=== PATIENT | male | born 1985 | race American Indian/Alaskan Native ===

== ENCOUNTER 2021-04-17 12:03 | Emergency (ER) | payer SELFPAY ==
--- NOTE | 2021-04-17 12:26 | Emergency Department Report ---
ED Seizure HPI - General Chief Complaint: Seizure Stated Complaint: SEIZURE Time Seen by Provider: 04/17/21 12:12 Source: EMS Mode of arrival: Stretcher Limitations: No Limitations - History of Present Illness Initial Comments: 36-year-old male presents to ED following seizure while at work. Patient states reports previously having 1 seizure approximately 5 years ago. States he was seen in the ED at that time, but never followed up with a neurologist for full work-up. Patient works for [employer]. States today he began "feeling weird," then had a seizure afterward. EMS was called and reports that patient was postictal for approximately 20 minutes afterward. Patient is currently awake and alert, no complaints. He denies any recent illness, fever, vomiting, diarrhea, headache. Patient reports he drinks alcohol approximately twice a week. He reports marijuana use, denies any other drug use. MD Complaint: seizure -: This morning Description of Episode: loss of consciousness Witnessed:: Yes Seizure History: other (Patient has had one seizure in the past) Place: work Associated Symptoms: denies: chest pain, cough, fever/chills, shortness of breath Treatments Prior to Arrival: none - Related Data Previous Rx's Medication Instructions Recorded Last Taken Type levETIRAcetam [Keppra TAB] 500 mg PO BID #60 tablet 04/17/21 Unknown Rx Allergies Allergy/AdvReac Type Severity Reaction Status Date / Time No Known Allergies Allergy Verified 04/17/21 12:12 ED Review of Systems ROS: Stated complaint: SEIZURE Other details as noted in HPI Comment: All other systems reviewed and negative Constitutional: denies: fever Respiratory: denies: cough, shortness of breath Cardiovascular: denies: chest pain Gastrointestinal: denies: abdominal pain, vomiting, diarrhea Neurological: denies: headache, weakness, numbness ED Past Medical Hx - Past Medical History Previous Medical History?: No - Surgical History Past Surgical History?: No - Medications Home Medications: Home Medications Medication Instructions Recorded Confirmed Last Taken Type levETIRAcetam [Keppra TAB] 500 mg PO BID #60 tablet 04/17/21 Unknown Rx ED Physical Exam - General Limitations: No Limitations General appearance: alert, in no apparent distress - Head Head exam: Present: atraumatic, normocephalic - Eye Eye exam: Present: normal appearance, PERRL, EOMI - ENT ENT exam: Present: mucous membranes moist - Neck Neck exam: Present: normal inspection - Respiratory Respiratory exam: Present: normal lung sounds bilaterally. Absent: respiratory distress - Cardiovascular Cardiovascular Exam: Present: regular rate, normal rhythm - GI/Abdominal GI/Abdominal exam: Present: soft. Absent: distended, tenderness - Extremities Exam Extremities exam: Present: normal inspection - Neurological Exam Neurological exam: Present: alert, oriented X3, CN II-XII intact. Absent: motor sensory deficit - Psychiatric Psychiatric exam: Present: normal affect, normal mood - Skin Skin exam: Present: warm, dry, intact, normal color ED Course Vital Signs 04/17/21 04/17/21 04/17/21 12:12 12:20 12:28 Temperature 98.2 F 98.2 F Pulse Rate 76 80 Respiratory 16 14 Rate Blood Pressure 116/80 Blood Pressure 110/74 [Right] O2 Sat by Pulse 99 97 97 Oximetry 04/17/21 04/17/21 04/17/21 12:31 12:36 12:45 Temperature Pulse Rate 82 Respiratory 15 16 Rate Blood Pressure 116/80 116/80 Blood Pressure [Right] O2 Sat by Pulse 98 97 99 Oximetry 04/17/21 04/17/21 04/17/21 13:01 13:15 13:31 Temperature Pulse Rate 71 76 67 Respiratory 16 17 16 Rate Blood Pressure 110/77 110/77 111/76 Blood Pressure [Right] O2 Sat by Pulse 97 99 99 Oximetry 04/17/21 04/17/21 04/17/21 13:45 14:01 14:15 Temperature Pulse Rate 60 78 65 Respiratory 13 18 14 Rate Blood Pressure 111/76 110/77 110/77 Blood Pressure [Right] O2 Sat by Pulse 98 97 97 Oximetry 04/17/21 04/17/21 04/17/21 14:31 14:45 15:01 Temperature Pulse Rate 64 81 66 Respiratory 16 17 15 Rate Blood Pressure 112/73 112/73 112/73 Blood Pressure [Right] O2 Sat by Pulse 98 99 99 Oximetry 04/17/21 04/17/21 04/17/21 15:15 15:31 15:45 Temperature Pulse Rate 78 90 80 Respiratory 13 15 16 Rate Blood Pressure 112/73 118/80 118/80 Blood Pressure [Right] O2 Sat by Pulse 99 99 98 Oximetry 11/01/21 11/01/21 11/01/21 16:01 16:15 16:43 Temperature 98.7 F Pulse Rate 72 81 81 Respiratory 15 14 14 Rate Blood Pressure 116/76 116/76 Blood Pressure 116/76 [Right] O2 Sat by Pulse 98 100 Oximetry ED Medical Decision Making - Lab Data Result diagrams: 04/17/21 13:11 04/17/21 14:45 - Radiology Data Radiology results: report reviewed, image reviewed - Medical Decision Making 36-year-old male presents to ED following seizure at work. Patient reports rem ote history of 1 other seizure. Patient never underwent work-up for seizure with a neurologist. Today, patient has no neuro deficits on exam. He is back to baseline. CT head is negative. Since this is patient's second seizure we will start him on Keppra. Patient advised not to drive or operate heavy machinery until he is cleared to do so by neurology. Patient will be discharged at this time. Critical care attestation.: If time is entered above; I have spent that time in minutes in the direct care of this critically ill patient, excluding procedure time. ED Disposition Clinical Impression: Seizure Disposition: 01 HOME / SELF CARE / HOMELESS Is pt being admited?: No Condition: Stable Instructions: Seizure, Adult, [id number] Additional Instructions: Do not drive or operate any heavy machinery until you have seen a neurologist and been cleared to do so. Prescriptions: levETIRAcetam [Keppra TAB] 500 mg PO BID #60 tablet Referrals: ANTHONY DASILVA MD [Primary Care Provider] - 3-5 Days TONI HUNT MD [Referring] - 3-5 Days [facility] [Provider Group] - 3-5 Days Time of Disposition: 15:33
--- NOTE | 2021-04-17 13:20 | Cat Scan Report ---
CT head/brain wo con INDICATION: SEIZURE or anxiety attack. TECHNIQUE: Routine CT head. All CT scans at this location are performed using CT dose reduction for A COR[place] by means of automated exposure control. COMPARISON: None. FINDINGS: Intracranial: Alba-white matter differentiation is maintained. No intracranial hemorrhage. No extra a xial collection. No hydrocephalus. No herniation. Sinuses: Paranasal sinuses and mastoid air cells are essentially clear. Orbits: Globes are intact. Calvarium: No acute fracture. IMPRESSION: 1. No acute intracranial abnormality. Signer Name: Jesus Quach MD Signed: 04/17/2021 1:16 PM Workstation Name: [id number]
[2021-04-17 14:00] LABS: Basophils % (Auto) 0.2 % (0.0-1.8); Eosinophils % (Auto) 0.5 % (0.0-4.3); Hematocrit 44.3 % (35.5-45.6); Hemoglobin 14.3 gm/dl (11.8-15.2); Lymphocytes # (Auto) 1.1 K/mm3 (1.2-5.4); Lymphocytes % (Auto) 15.9 % (13.4-35.0); Mean Corpuscular HGB Conc 32 % (32-34); Mean Corpuscular Volume 91 fl (84-94); Monocytes # (Auto) 0.4 K/mm3 (0.0-0.8); Platelet Count 135 K/mm3 (140-440); Red Blood Count 4.88 M/mm3 (3.65-5.03); Red Cell Distribution Width 15.2 % (13.2-15.2)
[2021-04-17 14:10] LABS: BUN/Creatinine Ratio 16; Blood Urea Nitrogen 16 mg/dL (9-20); Calcium 9.1 mg/dL (8.4-10.2); Hemolysis Index 14
[2021-04-17] MEDS ORDERED: levETIRAcetam 500 MG TAB PO ONE (15:33)
[2021-04-17 16:30] VITALS: BP 116/76
== END 2021-04-17 16:30 | disposition home or self-care (01) ==
LOC: ED 12:03
DX: R56.9 Unspecified convulsions (principal)
CPT/HCPCS: 36415; 70450; 80048; 84132; 85025; 99284